=== PATIENT | female | born 1985 | race Caucasian/White ===

== ENCOUNTER 2016-11-10 11:44 | Outpatient (CLI) | payer MEDICARE, OTHER ==
[2016-11-10 12:04] LABS: APPEARANCE,URINE Slightly Cloudy (CLEAR); COLOR,URINE Amber (YELLOW); OCCULT BLOOD,URINE Trace-intact (NEGATIVE); PH URINE 5.5 (5.0 - 8.0)
[2016-11-10 12:25] LABS: AMORPHOUS SEDIMENT,UR FEW (NEGATIVE)
== END 2016-11-10 11:45 ==
LOC: LAB 11:44
PROVIDERS: ATTEND Pediatrics
DX: N30.90 Cystitis, unspecified without hematuria (principal)
CPT/HCPCS: 81002; 82570